=== PATIENT | male | born 1980 | race Two or more races ===

== ENCOUNTER 2024-02-02 13:29 | Emergency (ER) | payer MEDICAID, OTHER ==
[~2024-02-02] VITALS: Ht 167.6 cm; Wt 71.7 kg
--- NOTE | 2024-02-02 14:04 | ED.PDOC ---
History of Present Illness HPI Comments 44-year-old male patient presents to the emergency room for cough. Patient denies any fevers. Patient denies cough being productive. Patient reports that he has had the cough for 3 weeks. Patient completed a course of antibiotics and promethazine. Patient reports that the cough is decreasing but that it is still present. Patient denies any chest pain, shortness of breath or congestion. Chief Complaint: Flu like Time Seen by MD: 13:52 Primary Care Provider: none Reviewed Notes: Nurses Notes, Medications Allergies: Coded Allergies: NO KNOWN ALLERGIES (Unverified , 02/02/24) Home Meds Active Scripts Ibuprofen Micronized (Ibuprofen) 600 Mg Tab, 600 MG PO TID for 30 Days, #90 TAB 0 Refills Prov:CLYDE CHRISTIANSON 02/02/24 Information Source: Patient Mode of Arrival: Ambulatory Family History Family History: Reviewed,noncontributory to illness X-Ray, Labs, Meds, VS Vital Signs Date Time Temp Pulse Resp B/P (MAP) Pulse Ox O2 Delivery O2 Flow Rate FiO2 02/02/24 13:46 98.0 87 18 100/67 (78) 97 PATIENT: MOE MEEK ACCT: [id number] UNIT: [id number] : 1980 LOC: ER ROOM / BED: / AGE / SEX: 44 / M ADM STATUS: REG ER SERVICE [id number] ORDERING PHYSICIAN: CLYDE CHRISTIANSON PROCEDURE(s): CXR2 - CHEST TWO VIEWS ROUTINE REASON: cough x 3 weeks ORDER NUMBER(s): [id number], ACCESSION NUMBER(s): [id number] EXAM: XY CHEST TWO VIEWS ROUTINE CLINICAL HISTORY: cough x 3 weeks COMPARISON: None TECHNIQUE: Frontal and lateral view of the chest was obtained FINDINGS: Lines and Tubes: None Lungs: No focal consolidation. Pleura: No effusion. No pneumothorax. Cardiomediastinal contours: Unremarkable Bones: No acute osseous abnormality. IMPRESSION: No acute cardiopulmonary disease. ATED BY: GILMER SPENCE MD DICTATED DATE/TIME: 02/02/24 142 SIGNED BY: GILMER SPENCE MD SIGNED DATE/TIME: 02/02/241428 CC: Departure 1 Departure Time of Disposition: 14:55 Impression: Primary Impression: Costochondritis e-Prescriptions Ibuprofen Micronized (Ibuprofen) 600 Mg Tab 600 MG PO TID for 30 Days, #90 TAB 0 Refills Prov: CLYDE CHRISTIANSON 02/02/24 CLYDE CHRISTIANSON Feb 02, 2024 14:04
--- NOTE | 2024-02-02 14:30 | DVH ---
EXAM: XY CHEST TWO VIEWS ROUTINE CLINICAL HISTORY: cough x 3 weeks COMPARISON: None TECHNIQUE: Frontal and lateral view of the chest was obtained FINDINGS: Lines and Tubes: None Lungs: No focal consolidation. Pleura: No effusion. No pneumothorax. Cardiomediastinal contours: Unremarkable Bones: No acute osseous abnormality. IMPRESSION: No acute cardiopulmonary disease.
[2024-02-02] MEDS ORDERED: IBUP1TAB5 PO (15:10)
[2024-02-02 15:33] VITALS: BP 139/74; PULSE 69; RESP 18; TEMP 99; O2SAT 99
== END 2024-02-02 15:33 | disposition home or self-care (01) ==
LOC: ER 13:29
DX: M94.0 Chondrocostal junction syndrome [Tietze] (principal); Z79.1 Long term (current) use of non-steroidal anti-inflammatories (NSAID)
CPT/HCPCS: 71046